=== PATIENT | male | born 2000 | race Caucasian/White ===

== ENCOUNTER 2023-03-03 17:36 | Emergency (ER) | payer MEDICAID, SELFPAY ==
[2023-03-03 18:11] VITALS: BP 151/70; PULSE 97; RESP 16; TEMP 36.6; O2SAT 99; BMI 25.0
--- NOTE | 2023-03-03 18:11 | ED.EYEPROB ---
HPI - Eye Problem General Chief complaint: Eye Problems Stated complaint: ?[facility] Time Seen by Provider: 03/03/23 19:15 Source: patient Mode of arrival: ambulatory Limitations: no limitations History of Present Illness HPI Narrative: 22 yo male healthy here with complaints of right eye pain, clear discharge, irritation x 3 days with no known injury or trauma. 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 Patient reports he does have glasses but has been using his mom's contact lenses. Patient also has a history of seasonal allergies and has had some runny nose and congestion over the last 2 weeks. No fevers, chills, eye weakness, vision change Tetanus UTD Related Data Previous Rx's Medication Instructions Recorded ofloxacin 0.3 % eye drops (Ocuflox) See Rx Instructions ophthalmic 03/03/23 (eye) .COMPLEX #10 mL Allergies Allergy/AdvReac Type Severity Reaction Status Date / Time environmental allergies Allergy Runny Nose Verified 03/03/23 18:10 Review of Systems Review of Systems: Yes all other systems are reviewed and are negative Constitutional: Constitutional: Reports no additional constitutional complaints, Denies body ache(s), Denies chills, Denies fever(s), Denies headache(s) and Denies weakness Eyes: Eyes: Reports no additional eye complaints, Denies change in vision, Reports eye discharge, Reports irritation, Reports eye pain, Reports requires corrective lenses and Reports photophobia ENT: Reports system reviewed and no additional complaints, except as documented, Denies dizziness, Denies headache(s), Denies nasal congestion, Denies nasal discharge and Denies neck pain Cardiovascular: Cardiovascular: Reports no additional cardiovascular complaints, Denies chest pain, Denies leg edema and Denies dyspnea Respiratory: Respiratory: Reports no additional respiratory complaints, Denies cough and Denies dyspnea Gastrointestinal: Gastrointestinal: Reports no additional gastrointestinal complaints, Denies abdominal pain, Denies diarrhea, Denies nausea and Denies vomiting Genitourinary: Genitourinary: Denies urinary incontinence Musculoskeletal: Musculoskeletal: Reports no additional musculoskeletal complaints, Denies back pain, Denies arthralgias, Denies joint swelling, Denies neck pain, Denies numbness and Denies tingling Integumentary/Breasts: Skin/Breast: Reports system reviewed and no additional complaints, except as docu and Denies rash Neurologic: Reports system reviewed and no additional complaints, except as documented, Denies Abnormal speech present, Denies dizziness, Denies headache(s), Denies numbness, Denies tingling and Denies weakness PMFSH Past Medical History Attestation statement: The following information was validated with the patient. Source: old records reviewed and nursing notes reviewed Medical History No pertinent past medical history Social History Social History Alcohol intake: never Smoked in Last 30 Days: Yes Use of substances other than those prescribed or required for medical reasons: Yes Substance Use Type: Marijuana Substance Use Frequency: Occasionally Advance Directives: No Advance Directives Information Provided: No Physical Exam Vital Signs: Vital Signs: Last Vital Signs Temp 97.9 F 03/03/23 20:02 Pulse 92 03/03/23 20:02 Resp 19 03/03/23 20:02 BP 148/74 H 03/03/23 20:02 Pulse Ox 99 03/03/23 20:02 O2 Del Method Room Air 03/03/23 20:02 BMI result Body Mass Index 25.0 Const: General: cooperative, healthy appearing, comfortable and no acute distress Orientation/consciousness: patient oriented x3 Limitations: no limitations HEENT: Head: Yes normal to inspection Ears: hearing grossly normal bilaterally and TM's normal bilaterally General nose exam: Normal external nose present Face and sinus: Yes normal facial exam Mouth: Normal oral and palatal mucosa present Throat: Yes posterior oropharynx normal Eyes: Other: IOP bilateral 15 -no corneal foreign body or abrasion noted. There is increased uptake over the conjunctiva diffusely with scleral edema Visual Rubio: normal visual rubio by confrontation Alignment and Position: alignment normal Periorbital: periorbital findings normal Eyelids: Yes eyelids normal Conjunctivae: conjunctival abnormal (Injection right ) Sclerae: scleral abnormal right (edema ) scleral injection Corneas: fluorescein used (no corneal abrasion or fb) Pupils: Equal, round and reactive pupils present EOM: EOMs intact bilaterally Direct Ophthalmoscopy: normal light reflex and photophobia Neck: Neck: Yes normal visual inspection Chest: Chest palpation & inspection: normal inspection of the chest Resp: Effort & Inspection: normal respiratory effort Auscultation: clear to auscultation bilaterally Cardio: Rate: regular rate Rhythm: regular rhythm Peripheral pulses: Peripheral pulses 2+ throughout GI: Inspection: Yes normal to inspection Palpation (GI): Soft to palpation and nontender Auscultation: normal bowel sounds Back/Spine/Pelvis: Thoracic/Lumbar Spine: thoracic and lumbar spine normal to inspection Skin: General skin exam: no rashes or lesions noted Neuro: General: patient oriented x3, no focal motor deficits and normal sensation to monofilament Cranial nerves: Yes Equal, round and reactive pupils present Cognition (Neuro): normal cognition Speech: No Abnormal speech present Gait exam (Neuro): Normal gait present Motor exam (neuro): 5/5 motor strength present throughout Extrem: General: Yes normal to inspection Course Course Course Narrative: This is an RME: Additional HPI, ROS, PE not included below will be deferred to primary provider. This is a [id number]-male presenting to the emergency department with complaints of right eye discomfort, watering, and blurred vision x 1 day. Works waterproofing basements, in arun environments. R eye with periorbital swelling, crusting, conjunctiva injected with tearing. Similar symptoms 2 weeks ago, resolved on its own. Plan: eye exam, visual acuity. Medications Administered Discontinued Medications Generic Name Dose Route Start Last Admin Trade Name Freq PRN Reason Stop Dose Admin Fluorescein Sodium 1 strip 03/03/23 19:24 03/03/23 19:30 Fluorescein Sodium Strip EYE-RIGHT 03/03/23 19:25 1 strip ONCE ONE Administration Tetracaine HCl 1 drop 03/03/23 19:24 03/03/23 19:30 Tetracaine Hcl/Pf 0.5% Oph [place] 4 Ml Drops EYE-RIGHT 03/03/23 19:25 1 drop ONCE ONE Administration Medical Decision Making Medical Decision Making [facility] Narrative: 22-year-old male here with 3 days of right eye pain, erythema, itching and drainage. No known injury or trauma On exam patient with right scleral edema, conjunctival injection with increased uptake of fluorescein on exam anterior. No abrasion or foreign body. Periorbital area normal in appear. EOM is normal with no weakness noted. Pressures are normal. Patient has been using his mom's contact lenses. May have mild keratitis or small abrasion not seen on exam. Therefore I will treat him with antibiotic eyedrops. Recommend he follow-up with Ophthalmology outpatient. Recommend he discontinue use of his mom's contacts. Reviewed worrisome signs and symptoms when to return to the emergency room. Comfortable did plan for discharge home Differential Diagnosis Differential Diagnoses: The differential diagnosis associated with the presentation includes Low concern for orbital cellulitis, corneal foreign body Consider corneal abrasion, keratitis Less likely iritis/uveitis Discharge Plan Discharge Clinical Impression: Bacterial conjunctivitis Patient Disposition: Home, Self-Care Instructions: Conjunctivitis (ED) Additional Instructions: You need to establish a [employer] and get your own prescription for contact Return for increasing pain, visual change Prescriptions: New ofloxacin [Ocuflox] 0.3 % drops See Rx Instructions .ROUTE .COMPLEX Qty: 10 0RF Rx Instructions: put 1-2 drps into affected eye(s) every 2-4 h x 2 days, then 1-2 drps 4 times/day days 3-7 Referrals: Timi Santana [Physician] - 10 days Interventions: ED Discharge Assessment Last Done: 03/03/23 20:23 Discharge Date/Time: 03/03/23 20:23
--- NOTE | 2023-03-03 18:42 | PC.NURSE ---
patienta&ox3, pt states he woke up with eye redness and blurry vision, intermittent stabbing 3/10 pain. pt states he does normally wear contacts which he has not been wearing today due to this. pt awaiting provider, will continue to monitor.
[2023-03-03] MEDS: Fluorescein Sodium STRIP 1 STRIP EYE-RIGHT (19:30)
[2023-03-03] MEDS: Tetracaine HCl/PF 0.5% Oph Sol 4 ML DROPS 1 DROP EYE-RIGHT (19:30)
--- NOTE | 2023-03-03 19:31 | PC.NURSE ---
provider to administer medication
[2023-03-03 20:02] VITALS: BP 148/74; PULSE 92; RESP 19; TEMP 36.6; O2SAT 99
== END 2023-03-03 20:23 | disposition home or self-care (01) ==
PROVIDERS: Emergency Provider Student in an Organized Health Care Education/Training Program
DX: H10.31 Unspecified acute conjunctivitis, right eye (principal)
CPT/HCPCS: 99283